=== PATIENT | male | born 1995 | race Caucasian/White ===

== ENCOUNTER 2025-06-27 15:39 | Emergency (ER) | payer OTHER ==
[2025-06-27 15:48] VITALS: TEMP 98.3
[2025-06-27] MEDS ORDERED: TETRACAINE 0.5% STERI-UNIT SOL OP ONE (15:58)
[2025-06-27] MEDS ORDERED: Fluor-I-Strip/Ful-Flo OP ONE (15:59)
[2025-06-27 16:02] VITALS: RESP 14; O2SAT 97
[2025-06-27] MEDS: Fluor-I-Strip/Ful-Flo OP ONE (16:03)
[2025-06-27] MEDS: TETRACAINE 0.5% STERI-UNIT SOL OP STA (16:04)
--- NOTE | 2025-06-27 16:39 | ERPHSYRPT ---
- History of Present Illness Time Seen by Provider: 06/27/25 15:42 Source: patient Exam Limitations: no limitations Patient Subjective Stated Complaint: pt states he got a piece of metal in his eye Triage Nursing Assessment: PT ARRIVES TO THE ED VIA PRIVATE VEHICLE. PT ABLE TO AMBULATE INTO THE ED WITHOUT DIFFICULTY. PT ALERT AND ORIENTED X4, NO SIGNS OF RESPIRATORY DISTRESS NOTED, PULSES EQUAL BILATERALLY. 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 PT WAS WEARING SAFETY GLASSES BUT STILL HAD A PIECE OF METAL GET INTO HIS EYE. PT STATES THIS HAS HAPPENED IN THE PAST AND HE HAD TO BE SEEN BY AN OPTHAMOLOGIST TO GET THE FOREIGN OBJECT OUT OF HIS EYE. PT STATES THAT THERE IS NO PAIN, JUST A SCRATCHY FEELING. 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 he did wear eye protection reports he felt like a shard of metal got into his eye he reports similar history about 2 months back he reports he flushed his eye copiously prior to arrival denies wearing any contacts patient is now in ED for further eval Timing/Duration: today Location: left eye Severity: mild Apparent Injury: possibly Associated Symptoms: pain, sensitivity to light Visual Assistive Devices: None Allergies/Adverse Reactions: No Known Drug Allergies Allergy (Verified 06/27/25 15:46) Hx Tetanus, Diphtheria Vaccination/Date Given: No Hx Influenza Vaccination/Date Given: No Hx Pneumococcal Vaccination/Date Given: No Immunizations Up to Date: Yes Travel Risk - International Travel Have you traveled outside of the country in past 3 weeks: No - Emerging Infectious Disease Are you exhibiting symptoms associated with any current EIDs: No - Review of Systems Constitutional: No Fever, No Chills Eyes: Eye Pain, Eye Redness, Photophobia Ears, Nose, & Throat: No Symptoms Respiratory: No Cough, No Dyspnea Cardiac: No Chest Pain, No Edema, No Syncope Abdominal/Gastrointestinal: No Abdominal Pain, No Nausea, No Vomiting, No Diarrhea Genitourinary Symptoms: No Dysuria Musculoskeletal: No Back Pain, No Neck Pain Skin: No Rash Neurological: No Dizziness, No Focal Weakness, No Sensory Changes Psychological: No Symptoms Endocrine: No Symptoms All Other Systems: Reviewed and Negative - Past Medical History Pertinent Past Medical History: No Neurological History: No Pertinent History ENT History: No Pertinent History Cardiac History: No Pertinent History Respiratory History: No Pertinent History Endocrine Medical History: No Pertinent History Musculoskeletal History: No Pertinent History GI Medical History: No Pertinent History History: No Pertinent History Psycho-Social History: No Pertinent History Male Reproductive Disorders: No Pertinent History - Past Surgical History Past Surgical History: No Neuro Surgical History: No Pertinent History Cardiac: No Pertinent History Respiratory: No Pertinent History Gastrointestinal: No Pertinent History Genitourinary: No Pertinent History Musculoskeletal: No Pertinent History Male Surgical History: No Pertinent History - Social History Smoking Status: Never smoker Exposure to second hand smoke: No Drug Use: none - Social Determinants of Health Will the patient participate in the screening: Yes Do you worry about a steady place to live?: No Do you have any problems with any of the following?: No known problems In the past 12 months,have you had to go without utilities?: No Transportation Issues: No Has anyone in your support network made you feel unsafe?: No Have you or anyone in your house had to go w/o enough food: No - Nursing Vital Signs Nursing Vital Signs: Initial Vital Signs Temperature 98.3 F 06/27/25 15:47 Pulse Rate 89 06/27/25 15:47 Respiratory Rate 15 06/27/25 15:47 Blood Pressure 139/91 06/27/25 15:47 O2 Sat by Pulse Oximetry 98 06/27/25 15:47 Pain Scale Pain Intensity 0 - Physical Exam Vision Acuity Degree Evaluation Phase: Uncorrected Vision Acuity Right Eye: 20/20 Vision Acuity Left Eye: 20/50 Eye Exam: right eye: normal inspection, left eye: conjunctival inflammation, corneal abrasion, erythema, bilateral eye: PERRL Ears, Nose, Throat Exam: normal ENT inspection Neck Exam: normal inspection Respiratory Exam: normal breath sounds Cardiovascular Exam: regular rate/rhythm, normal heart sounds Gastrointestinal Exam: soft Extremity Exam: normal inspection Neurologic: alert, oriented x 3 Skin Exam: normal color, warm, dry SpO2 Interpretation: normal SpO2: 97 O2 Delivery: Room Air - Course Nursing assessment & vital signs reviewed: Yes Ordered Tests: Medication Summary Discontinued Medications Generic Name Dose Route Start Last Admin Trade Name Freq PRN Reason Stop Dose Admin Fluorescein Sodium 1 mg 06/27/25 15:57 06/27/25 16:03 Fluorescein Sodium 1 Mg/Strip Strip OP 06/27/25 15:58 1 mg STAT ONE Administration Fluorescein Sodium Confirm 06/27/25 15:59 Fluorescein Sodium 1 Mg/Strip Strip Administered 06/27/25 16:00 Dose 1 mg OP .STK-MED ONE Sodium Chloride Confirm 06/27/25 16:30 Sodium Chloride 0.9% 1000 Ml Administered 06/27/25 16:31 Dose 1,000 mls @ ud .ROUTE .STK-MED ONE Sodium Chloride 1,000 mls @ 999 mls/hr 06/27/25 16:31 06/27/25 16:33 Sodium Chloride 0.9% 1000 Ml IV 06/27/25 17:31 999 mls/hr .Q1H1M STA Administration Tetanus/Diphtheria Toxoids Adsorbed 0.5 ml 06/27/25 16:31 06/27/25 16:51 Tetanus And Diphtheria Tox/Pf 0.5 Ml Vial IM 06/27/25 16:32 0.5 ml .ONCE ONE Administration Tetanus/Diphtheria Toxoids Adsorbed Confirm 06/27/25 16:50 Tetanus And Diphtheria Tox/Pf 0.5 Ml Vial Administered 06/27/25 16:51 Dose 0.5 ml IM .STK-MED ONE Tetracaine HCl 4 ml 06/27/25 15:54 06/27/25 16:04 Tetracaine Hcl/Pf 4 Ml Bottle OP 06/27/25 15:55 4 ml STAT STA Administration Tetracaine HCl Confirm 06/27/25 15:58 Tetracaine Hcl/Pf 4 Ml Bottle Administered 06/27/25 15:59 Dose 4 ml OP .STK-MED ONE - Progress Progress Note: 06/27/25 16:33 Patient has fluorescein uptake was given tetracaine to numb the eye he has got a corneal abrasion he does not wear contact lenses patient will be prescribed erythromycin ointment recommend he follow-up with ophthalmology next 24 hours recommend close return precautions 06/27/25 16:56 We attempted copious irrigation with Jose lens and liter fluid patient we discharged with erythromycin ointment and recommend Optho follow-up tomorrow patient especially send the treatment plan - Departure Departure Disposition: Home Clinical Impression: Foreign body in eye Qualifiers: Encounter type: initial encounter Laterality: left Qualified Code(s): T15.92XA - Foreign body on external eye, part unspecified, left eye, initial encounter Corneal abrasion Qualifiers: Encounter type: initial encounter Laterality: left Qualified Code(s): S05.02XA - Injury of conjunctiva and corneal abrasion without foreign body, left eye, initial encounter Condition: Good Critical Care Time: No Referrals: RENO ZIMMER, OD [NON-STAFF PHY W/O PRIVILEGES, OPHTHALMOLOGY] - Follow up/PCP as directed Instructions: Corneal abrasion, Foreign Body in Eye (DC) Prescriptions: Erythromycin Base 3.5 gm [Erythromycin 3.5 GM OPHTH.] 1 inch OP QID 5 Days #1 unit
[2025-06-27] MEDS ORDERED: TENIVAC VIAL IM ONE (16:50)
[2025-06-27] MEDS: TENIVAC VIAL IM ONE (16:51)
[2025-06-27 16:56] VITALS: BP 130/80; PULSE 89
== END 2025-06-27 17:03 | disposition home or self-care (01) ==
LOC: ED 15:39
DX: T15.92XA Foreign body on external eye, part unspecified, left eye, initial encounter (principal); S05.02XA Injury of conjunctiva and corneal abrasion without foreign body, left eye, initial encounter; W44.D9XA Other magnetic metal objects entering into or through a natural orifice, initial encounter; Y92.64 Mine or pit as the place of occurrence of the external cause; Y99.0 Civilian activity done for income or pay; Z79.899 Other long term (current) drug therapy; Z23 Encounter for immunization